=== PATIENT | female | born 1995 | race Caucasian/White ===

== ENCOUNTER 2016-12-20 12:13 | Emergency (ER) | payer OTHER ==
[~2016-12-20] VITALS: Ht 157.5 cm; Wt 55.9 kg
--- NOTE | 2016-12-20 12:24 | NUR ---
no answer in er lobby
[2016-12-20 12:44] VITALS: BP 135/68
[2016-12-20] MEDS ORDERED: ONDANSETRON 4 MG ODT PO ONE (12:55)
--- NOTE | 2016-12-20 13:11 | NUR ---
Patient ambulated to bed 7.
--- NOTE | 2016-12-20 13:20 | NUR ---
PATIENT PRESENTS TO ED WITH c/o nausea and vomiting x 2 wks----denies abdominal pain, no watery/loose stools unable to tolerate PO's hx----denies rx-----none; DENIES DIARRHEA; SKIN IS PINK/WARM/DRY; AAOX4 WITH EVEN AND STEADY GAIT; LUNGS CLEAR BL; HR EVEN AND REGULAR; PT DENIES ANY FEVER, CP, SOB, OR COUGH AT THIS TIME; PATIENT STATES PAIN OF 0/10 AT THIS TIME; VSS; PATIENT POSITIONED FOR COMFORT; HOB ELEVATED; BEDRAILS UP X2; BED DOWN. ER MD MADE AWARE OF PT STATUS.
[2016-12-20 14:15] VITALS: BP 127/79
== END 2016-12-20 14:15 | disposition home or self-care (01) ==
LOC: MED 12:13
DX: R11.2 Nausea with vomiting, unspecified (principal)
CPT/HCPCS: 81002; 81025; 99283; S0119